=== PATIENT | male | born 1945 | race Caucasian/White ===

== ENCOUNTER → 2018-07-09 | Outpatient (CLI) | payer MEDICARE ==
[~2018-07-09] MED LIST: FLU60SYR30 IM ONLY
== END ==
LOC: LAB 09:30
PROVIDERS: ATTEND Urology
DX: C61 Malignant neoplasm of prostate (principal)
CPT/HCPCS: 36415; 84153

== ENCOUNTER 2019-02-19 12:16 | Emergency (ER) | payer MEDICARE ==
--- NOTE | 2019-02-19 12:30 | ER Report ---
History and Physical Time Seen By MD: 12:30 HPI/ROS CHIEF COMPLAINT: Urinary retention HISTORY OF PRESENT ILLNESS: This is a 73-year-old male who presents to emergency department for urinary retention. Patient states that on Sunday he had a prostate biopsy in [place] by Dr. Claire, was unable to urinate following the procedure, they did place a catheter, patient states he did go home with a leg bag, the urine did ultimately clear, he contacted the clinic they said remove it, patient states he did remove the catheter about 7:00 yesterday morning, was doing okay for the 1st 4-5 hours then began to have some difficulty urinating with some dribbling, continue to have some dribbling throughout the night, then about 2 hours prior to arrival states he was unable to urinate at all, began to have some ladder distention and discomfort. Decided to come in for evaluation. A catheter was placed he had a proximal 600 mL of urine out. No chest pain or shortness of breath. No fevers or chills. He has been taking antibiotics as prescribed by the urologist in [place]. REVIEW OF SYSTEMS: Constitutional: No fever, no chills. Eyes: No discharge. ENT: No sore throat. Cardiovascular: No chest pain, no palpitations. Respiratory: No cough, no shortness of breath. Gastrointestinal: No abdominal pain, no vomiting. Genitourinary: As above. Musculoskeletal: No back pain. Skin: No rashes. Neurological: No headache. Allergies: Coded Allergies: No Known Drug Allergies (Unverified , 02/19/19) Home Meds Active Scripts Tamsulosin Hcl (FLOMAX) 0.4 Mg Cap.er.24h, 0.4 MG PO DAILY for 14 Days, #14 CAP Prov:SONAL BLACKMAN DRY MOLDER- 02/19/19 Past Medical/Surgical History Patient has a past medical and surgical history of prostate cancer. Reviewed Nurses Notes: Yes Constitutional Vital Sign - Last 24 Hours 02/19/19 12:49 Temp 98.1 Pulse 71 Resp 20 B/P (MAP) 119/69 Pulse Ox 100 O2 Delivery Room Air Physical Exam General Appearance: The patient is alert, has no immediate need for airway protection and no signs of toxicity. Eyes: Pupils equal and round no pallor or injection. ENT, Mouth: Mucous membranes are moist. Respiratory: There are no retractions, lungs are clear to auscultation. Cardiovascular: Regular rate and rhythm. Gastrointestinal: Abdomen is soft and non tender, no masses, bowel sounds normal. Genitourinary: Bladder distention, significant relief of distention after Bender catheter placed. No clots or gross blood noted in the urine. Neurological: Alert and oriented 4. Moving all His. Following all commands. No focal neuro deficits. Skin: Warm and dry, no rashes. Musculoskeletal: Neck is supple non tender. Extremities are nontender, nonswollen and have full range of motion. DIFFERENTIAL DIAGNOSIS: After history and physical exam differential diagnosis was considered for urinary retention, sepsis, prostatitis. Medical Decision Making Data Points Laboratory Hematology Test 02/19/19 12:55 Urine Color Yellow Urine Clarity Slightly-cloudy Urine pH 6.0 pH (4.8-9.5) Urine Specific Toney 1.014 Urine Protein Negative mg/dL (NEGATIVE) Urine Glucose (UA) Negative mg/dL (NEGATIVE) Urine Ketones 20 mg/dL (NEGATIVE) Urine Blood Large (NEGATIVE) Urine Nitrite Negative (NEGATIVE) Urine Bilirubin Negative (NEGATIVE) Urine Urobilinogen Negative mg/dL (0.2-1.9) Urine Leukocyte Esterase Negative (NEGATIVE) Urine RBC 215 /HPF (0-2/HPF) Urine WBC 4 /HPF (0-5/HPF) Urine Squamous Epithelial Cells None /LPF (NONE-FEW) Urine Bacteria Negative /HPF (NONE-FEW) Urine Mucus Few /HPF (NONE-FEW) Chemistry Test 02/19/19 12:55 Urine Color Yellow Urine Clarity Slightly-cloudy Urine pH 6.0 pH (4.8-9.5) Urine Specific Toney 1.014 Urine Protein Negative mg/dL (NEGATIVE) Urine Glucose (UA) Negative mg/dL (NEGATIVE) Urine Ketones 20 mg/dL (NEGATIVE) Urine Blood Large (NEGATIVE) Urine Nitrite Negative (NEGATIVE) Urine Bilirubin Negative (NEGATIVE) Urine Urobilinogen Negative mg/dL (0.2-1.9) Urine Leukocyte Esterase Negative (NEGATIVE) Urine RBC 215 /HPF (0-2/HPF) Urine WBC 4 /HPF (0-5/HPF) Urine Squamous Epithelial Cells None /LPF (NONE-FEW) Urine Bacteria Negative /HPF (NONE-FEW) Urine Mucus Few /HPF (NONE-FEW) Urinalysis Test 02/19/19 12:55 Urine Color Yellow Urine Clarity Slightly-cloudy Urine pH 6.0 pH (4.8-9.5) Urine Specific Toney 1.014 Urine Protein Negative mg/dL (NEGATIVE) Urine Glucose (UA) Negative mg/dL (NEGATIVE) Urine Ketones 20 mg/dL (NEGATIVE) Urine Blood Large (NEGATIVE) Urine Nitrite Negative (NEGATIVE) Urine Bilirubin Negative (NEGATIVE) Urine Urobilinogen Negative mg/dL (0.2-1.9) Urine Leukocyte Esterase Negative (NEGATIVE) Urine RBC 215 /HPF (0-2/HPF) Urine WBC 4 /HPF (0-5/HPF) Urine Squamous Epithelial Cells None /LPF (NONE-FEW) Urine Bacteria Negative /HPF (NONE-FEW) Urine Mucus Few /HPF (NONE-FEW) ED Course/Re-evaluation ED Course Patient was admitted to room. A history and physical were obtained. Differential diagnoses were considered. A Bender catheter was placed, partially 600 mL of clear yellow urine drained from the patient's bladder, patient had significant relief of his symptoms.UA showing ketonuria, large blood otherwise unremarkable. I did attempt make contact with Dr. Vasquez as noted below, however he was unavailable, I did make contact with Dr. Montelongo, patient will follow-up in 1-2 days for reevaluation, catheter will remain in place for the next 1-2 days. He was started on Flomax. No other questions or concerns at this time discharged home. Patient is also on antibiotics at this time. 02/19/2019 1:23:41 pm I did call Dr. Quintana, the on-call urologist, no answer on the cell phone, I did contact his office, they said that he was in the [place] today, he could be out of range. I did end up making contact with Dr. Montelongo, the patient will follow-up tomorrow or the following day. Catheter remains in place. Decision to Disposition Date: February 19, 2019 Decision to Disposition Time: 13:50 Depart Departure Latest Vital Signs Vital Signs Date Time Temp Pulse Resp B/P (MAP) Pulse Ox O2 Delivery O2 Flow Rate FiO2 02/19/19 12:49 98.1 71 20 119/69 100 Room Air Impression: Primary Impression: Urinary retention Additional Impression: H/O prostate biopsy Condition: Improved Disposition: HOME OR SELF-CARE Referrals: OLY MUNOZ (PCP) BARBARA MONTELONGO MD 2 Days New Scripts Tamsulosin Hcl (FLOMAX) 0.4 Mg Cap.er.24h 0.4 MG PO DAILY for 14 Days, #14 CAP Prov: SONAL BLACKMAN-BC 02/19/19 Patient Instructions: Prostate Biopsy (GEN), Urinary Retention in Men (ED) Additional Instructions: Please contact Dr. Montelongo's office today, to schedule a follow up appointment tomorrow or sunday. Please take 1 flomax once a day. Take Tylenol as needed for pain. Be sure to clean the catheter as we discussed 3-4 times a day. Drink plenty of water. Get plenty of rest. Return to the ED for any other concerns or worsening symptoms. Problem Qualifiers SONAL BLACKMANP-BC February 19, 2019 12:30
[2019-02-19] MEDS ORDERED: LIDOCAINE 2% 200MG/10ML UROJET TP ONE (12:35)
[2019-02-19] MEDS ORDERED: TAMS0.4C25 PO (13:52)
[2019-02-19 13:56] VITALS: BP 113/68
== END 2019-02-19 14:07 | disposition home or self-care (01) ==
LOC: ER 12:40
DX: R33.9 Retention of urine, unspecified (principal)
CPT/HCPCS: 81001; 99283